=== PATIENT | male | born 1985 | race African-American/Black ===

== ENCOUNTER 2023-03-26 05:41 | Day surgery (SDC) | payer OTHER ==
[~2023-03-26] VITALS: Ht 170.2 cm; Wt 72.7 kg
[~2023-03-26 05:41] MED LIST: RINGERS SOLUTION,LACTATED 1,000 ML IV ONE
[2023-03-26] MEDS ORDERED: PROPOFOL 1% ISO-OSM 1000 MG/100 ML BOTTLE IV ONE (05:42)
[2023-03-26] MEDS ORDERED: FentaNYL CITRATE PF 100 MCG/2 ML VIAL IVP ONE (05:42)
[2023-03-26] MEDS ORDERED: MIDAZOLAM HCL 2 MG/2 ML VIAL IVP ONE (05:42)
[2023-03-26] MEDS ORDERED: RINGERS SOLUTION,LACTATED 1,000 ML IV ONE (06:00)
[2023-03-26 06:38] LABS: BASOPHILS % (AUTO) 0.5 % (0.0-2.0); EOSINOPHILS % (AUTO) 1.9 % (1.0-6.0); HEMATOCRIT 47.5 % (41-53); HEMOGLOBIN 15.6 g/dL (13.5-17.5); LYMPHOCYTES # (AUTO) 2.8 K/uL (1.0-4.8); LYMPHOCYTES % (AUTO) 49.4 % (22.0-44.0); MEAN CORPUSCULAR HEMOGLOBIN 26.6 pg (26.0-34.0); MEAN CORPUSCULAR HGB CONC 32.8 G/dL (31.0-37.0); MEAN CORPUSCULAR VOLUME 81 fL (80-100); MONOCYTES # (AUTO) 0.8 K/uL (0.1-1.0); MONOCYTES % (AUTO) 13.9 % (2.0-9.0); NEUTROPHILS % (AUTO) 34.3 % (40.0-70.0); PLATELET COUNT (AUTO) 227 K/uL (150-450); RED BLOOD CELL COUNT(AUTO) 5.88 MIL/uL (4.50-5.90); RED CELL DISTRIBUTION WIDTH 13.8 % (11.5-14.5)
[2023-03-26] MEDS ORDERED: OMEP10 PO (06:43)
[2023-03-26] MEDS ORDERED: CALC500T37 PO (06:44)
[2023-03-26] MEDS ORDERED: ACET-3385 PO (06:44)
[2023-03-26] MEDS ORDERED: LIDOCAINE/PF 1% 30 ML VIAL ONE (06:53)
[2023-03-26] MEDS ORDERED: SODIUM CHLORIDE 0.9% 1,000 ML ONE (06:53)
[2023-03-26] MEDS ORDERED: BUPIVACAINE HCL/PF 0.5% 30 ML VIAL ONE (06:53)
[2023-03-26 07:00] LABS: ANION GAP 7 mmol/L (8-16); CALCIUM, TOTAL 9.2 mg/dL (8.8-10.5); CARBON DIOXIDE 29 mmol/L (22-29); CHLORIDE 104 mmol/L (98-107); CREATININE 1.25 mg/dL (0.60-1.30); GLOMERULAR FILTR. RATE CALC > 60 mL/min (>60); GLUCOSE,RANDOM 95 mg/dL (70-110); POTASSIUM 3.6 mmol/L (3.5-5.1); SODIUM SERUM 140 mmol/L (136-145)
[2023-03-26] MEDS ORDERED: BUPIVACAINE LIPOSOME/PF 1.3%-13.3MG/ML SUSPENSION 20 ML VIAL INJ ONE (07:00)
[2023-03-26 07:05] LABS: ALANINE AMINOTRANSFERASE 19 U/L (12-78); ALBUMIN 4.1 g/dL (3.4-5.0); ALKALINE PHOSPHATASE 95 U/L (46-116); ASPARTATE AMINOTRANSFERASE 20 U/L (15-37); BILIRUBIN,TOTAL 0.5 mg/dL (0.1-1.0); TOTAL PROTEIN, SERUM 7.6 g/dL (6.4-8.2)
[2023-03-26 07:14] LABS: INR 1.1 (0.9-1.1); PROTHROMBIN TIME 11.5 SEC (9.4-11.6)
[2023-03-26] MEDS ORDERED: HYDROmorphone HCL 2 MG/ML SYRINGE IVP PRN (07:45)
[2023-03-26] MEDS ORDERED: FentaNYL CITRATE PF 100 MCG/2 ML VIAL IVP PRN (07:45)
[2023-03-26] MEDS ORDERED: MEPERIDINE-PF 25 MG/ML VIAL IVP PRN (07:45)
[2023-03-26] MEDS ORDERED: OXYGEN THERAPY IH SCH (08:00)
== END 2023-03-26 08:50 ==
LOC: SURGERY 05:41
PROVIDERS: ATTEND Podiatrist Foot & Ankle Surgery
DX: L98.0 Pyogenic granuloma (principal); K21.9 Gastro-esophageal reflux disease without esophagitis; Z79.01 Long term (current) use of anticoagulants; Z79.899 Other long term (current) drug therapy
CPT/HCPCS: 11424; 80053; 85025; 85610; 85730; 36415; 88305; 88312; 88342; J3490 ×2; J3010; J2250; J2704; J7120; J7030; C9290